=== PATIENT | male | born 2000 | race Hispanic/Latino ===

== ENCOUNTER → 2021-05-15 | Outpatient (CLI) | payer OTHER, SELFPAY | END | disposition home or self-care (01) | PROVIDERS: Visit Provider Family Medicine | DX: Z23 Encounter for immunization (principal) ==

== ENCOUNTER 2023-09-15 23:48 | Emergency (ER) | payer OTHER, SELFPAY ==
[2023-09-15 23:50] VITALS: BP 132/79; PULSE 90; RESP 16; TEMP 37.1; O2SAT 99; BMI 22.1
--- NOTE | 2023-09-16 00:48 | RAD_ITS ---
EXAM: XR LEFT ANKLE COMPLETE, 3 OR MORE VIEWS CLINICAL INDICATION: ? osteo TECHNIQUE: Frontal, lateral and oblique views of the left ankle. COMPARISON: No relevant prior studies available. FINDINGS: BONES/JOINTS: Unremarkable. No acute fracture. No subluxation. Normal alignment. Preservation of the joint space. No sclerotic or destructive changes observed. SOFT TISSUES: Soft tissue swelling laterally. No radiopaque foreign body. RAD/Ankle min 3 Views IMPRESSION: Soft tissue swelling laterally. No bony abnormality. Electronically Signed: Keith Dunlap MD at 1:49 EDT ,
[2023-09-16 00:55] VITALS: BP 118/65; PULSE 91; RESP 18; TEMP 36.7; O2SAT 99
[2023-09-16 01:00] VITALS: BP 125/78; PULSE 95; RESP 18; TEMP 36.7; O2SAT 99
[2023-09-16 01:15] LABS: Absolute Lymphocyte Count 1.11 X10^3/uL (0.83-4.51); Absolute Neutrophil Count 8.1 X10^3/uL (2.0-7.7); Basophil# 0.04 X10^3/uL; Basophil% 0.4 % (0-1); Eosinophil# 0.06 X10^3/uL; Eosinophils% 0.6 % (0-5); Hematocrit 42.7 % (40-54); Hemoglobin 14.8 g/dL (13.0-16.5); Lymphocyte # 1.11 X10^3/ul (0.83-4.51); Lymphocyte % 11.1 % (19-41); Mean Corp Hgb Conc 34.7 g/dL (32-36); Mean Corpuscular Hgb 30.5 pg (27.0-32.0); Mean Corpuscular Volume 87.9 fL (80-94); Mean Platelet Vol. 8.6 fl (6.2-12.0); Monocyte# 0.62 X10^3/uL; Monocyte% 6.2 % (0-10); NRBC Flagged by Analyzer 0 % (0-5); Neutrophil # 8.11 X10^3/uL (2.7-7.7); Neutrophil % 81.4 % (47-70); Platelet Count 267 K/mm3 (150-450); RBC Distribution Width CV 11.8 % (11.6-14.6); RBC Distribution Width SD 37.9 fl (35.1-43.9); Red Blood Count 4.86 M/mm3 (4.6-6.2)
[2023-09-16] MEDS: Piperacil/Tazobactam 3.375 GM in 0.9% Normal Saline (50mL MB+) 50 ML IV (01:15)
[2023-09-16 01:44] LABS: Lactic Acid 1.3 mmol/L (0.4-1.9)
[2023-09-16 02:00] VITALS: BP 135/86; PULSE 82; RESP 18; TEMP 36.8; O2SAT 97
--- NOTE | 2023-09-16 02:51 | EDS_ITS ---
HPI History of Present Illness Chief Complaint: Wound Informant: patient Narrative Narrative: Patient is a 22-year-old male with no significant past medical history. He states that 2 to 3 days ago he noticed a small bump along the left lateral ankle. He states he was unsure if it was a bug bite such as mosquito bite or ingrown hair. He states that over the last few days since the bump developed and now has increased redness swelling and pain along the foot and lower leg. He denies any history of immunosuppression he denies any history of IV drug use. He states that he is not a diabetic. However he does have concern for infection based on his symptoms and therefore comes in for evaluation [facility] Home Medications clindamycin HCl 300 mg capsule (Cleocin HCl) 300 mg PO 4X/DAY 10 days #40 CAPSULES 09/16/23 [Rx Last Taken Unknown] Allergy/AdvReac Type Severity Reaction Status Date / Time No Known Allergies Allergy Verified 09/16/23 01:11 Surgical History (Updated 09/16/23 @ 00:14 by Sadaf Simon) H/O sinus surgery Social History Smoking Status: Never smoker EXAM Physical Exam Const Vital Signs: 09/15/23 23:50 09/16/23 00:55 09/16/23 01:00 Temperature 98.8 F 98.1 F 98.1 F Temperature Source Oral Oral Oral Pulse Rate 90 91 95 Respiratory Rate 16 18 18 Blood Pressure 132/79 H 118/65 125/78 H Blood Pressure Mean 96 82 93 Pulse Ox 99 99 99 Oxygen Delivery Method Room Air Room Air Room Air 09/16/23 02:00 09/16/23 03:09 Temperature 98.3 F 98.3 F Temperature Source Oral Pulse Rate 82 72 Respiratory Rate 18 16 Blood Pressure 135/86 H 128/73 H Blood Pressure Mean 102 91 Pulse Ox 97 96 Oxygen Delivery Method Room Air Positive well nourished and well developed General Appearance ED: well developed HEENT HEENT Narrative: Normocephalic atraumatic Eyes PERRL and EOMs intact bilaterally General Eye ED: Negative for scleral icterus Neck supple Neck Narrative: No nuchal rigidity or meningeal signs Resp normal respiratory effort and clear to auscultation bilaterally Cardio regular rate and regular rhythm Extremity Extremity Narrative: Left lower extremity is neurovascular intact. There is a small half centimeter area of erythema and induration along the anterior lateral aspect of the left ankle and extending out from this is asymmetric erythema and warmth across the dorsum of the left foot approximately to the third metacarpal and roughly 3 cm proximal to the lateral malleolus. However the asymmetric erythema is along the lateral aspect of the leg/foot and not circumferential. No obvious lymphangitic streak. No bony deformity or crepitance. No active discharge. Neuro oriented x3, CN's II-XII intact bilaterally and no sensory deficits noted Sensorium / Orientation: alert Motor Exam: strength 5/5 throughout Psych mental status grossly normal Skin Skin Narrative: Soft tissue changes along the left lower leg/foot as documented above MDM MDM MDM Narrative Medical decision making narrative: Patient arrived the ER with stable vitals and reported increasing redness and swelling to the left lower leg/foot with no known injury. He does not have any history of immunosuppression and he denies any IV drug use. General diagnosis is for abscess versus cellulitis versus osteomyelitis. Patient blood work was obtained which shows no white count or lactic acidosis. X-ray of the left ankle reveals no signs of osteomyelitis. On reevaluation vitals remained stable. Therefore at this time as history and exam is most consistent with small abscess and surrounding cellulitis without changes to suggest systemic infection or osteomyelitis I do not feel there is need for further evaluation in the ER and patient can be discharged home on antibiotics. We did discuss incision and drainage based on the small nature of the abscess patient will do warm compresses and we will hold off on I&D at this time History & Record Review Discussion w/independent historian: Patient Lab Data Attestation: I reviewed the patient's lab results. Labs: Laboratory Results - last 24 hr 09/16/23 01:05 WBC 10.0 RBC 4.86 Hgb 14.8 Hct 42.7 MCV 87.9 MCH 30.5 MCHC 34.7 RDW Std Deviation 37.9 RDW Coeff of Curly 11.8 Plt Count 267 MPV 8.6 Immature Gran % (Auto) 0.300 Neut % (Auto) 81.4 H Lymph % (Auto) 11.1 L Clarke % (Auto) 6.2 Eos % (Auto) 0.6 Baso % (Auto) 0.4 Absolute Neuts (auto) 8.1 H Absolute Lymphs (auto) 1.11 Nucleated RBC % 0 Lactic Acid 1.3 Radiography Diagnostic Testing: Clinical Impression(s) from Imaging Studies Ankle X-Ray 09/16/23 00:48 IMPRESSION: Soft tissue swelling laterally. No bony abnormality. Electronically Signed: Keith Dunlap MD at 1:49 EDT , X-ray of the left ankle as interpreted by the emergency medicine physician reveals soft tissue swelling without moth-eaten appearance to suggest osteomyelitis and there is no foreign body or acute fracture Discharge Plan Triage Chief Complaint: Wound ED Provider: Sherman Bennett Dx/Rx/DC Orders Clinical Impression: Abscess or cellulitis of ankle Instructions: ED Abscess Antibiotic Treatment Only, ED Cellulitis Prescriptions: New clindamycin HCl [Cleocin HCl] 300 mg capsule 300 mg PO 4X/DAY 10 Days Qty: 40 0RF Primary Care Provider: Care Physician,No Primary Referrals: Wilder Dickerson MD [Med Staff - Active Staff] - Care Physician,No Primary [Primary Care Provider] - Activity Restrictions/Additional Instructions: Please use warm compresses to the left ankle to help with spontaneous drainage of the abscess and take antibiotic as directed to resolve the surrounding infection. Return to the ER should you have any further concerns or worsening of symptoms Disposition Disposition: Home, Self Care Discharge Date/Time: 09/16/23 03:24
[2023-09-16 03:09] VITALS: BP 128/73; PULSE 72; RESP 16; TEMP 36.8; O2SAT 96
== END 2023-09-16 03:24 | disposition home or self-care (01) ==
PROVIDERS: Emergency Provider Emergency Medicine; Visit Provider Emergency Medicine
DX: L02.415 Cutaneous abscess of right lower limb (principal); L03.115 Cellulitis of right lower limb
CPT/HCPCS: 73610; 83605; 85025; 96365; 96366; 99283; A4216